=== PATIENT | female | born 1980 | race African-American/Black ===

== ENCOUNTER 2017-03-22 11:48 | Emergency (ER) | payer OTHER ==
[~2017-03-22] VITALS: Ht 162.6 cm; Wt 70.8 kg
[~2017-03-22 11:48] MED LIST: ACETAMINOPHEN325 M1 PO; AMOXICILLIN 50500 M1 PO; CENTRUM SILVER1 EAC2 PO; CIPROFLOXACIN500 M1 PO; FLEXERIL PO; HYDROCODON-ACE1 EAC7 PO; IBUPROFEN 600600 M1 PO; MACROBID 100 M100 M1 PO; NAPROSYN500 MG PO; NOHOMEMEDICATIONS; OSELB75 PO; PYRIDIUM200 MG PO; TESSALON PERLE100 MG PO; ZOFRAN ODT4 MG PO; ZPAK PO
[2017-03-22 12:53] LABS: HEMATOCRIT 38.4 % (37.0-47.0); HEMOGLOBIN 13.5 gm/dL (12.0-15.0); MCH 29.8 pg (26.0-34.0); MCHC 35.1 g/dL (28.0-37.0); MCV 84.9 fL (80.0-100.0); PLATELET COUNT 174 thou/uL (150-400); RBC 4.52 mil/uL (4.20-5.00); RDW 12.4 % (10.5-14.5); WBC 3.6 thou/uL (4.0-11.0)
[2017-03-22 12:54] LABS: URINE BILIRUBIN NEGATIVE (Negative); URINE BLOOD TRACE (Negative); URINE COLOR YELLOW; URINE GLUCOSE-RANDOM* NEGATIVE (Negative); URINE KETONES NEGATIVE (Negative); URINE NITRITE NEGATIVE (Negative); URINE PROTEIN (DIPSTICK) NEGATIVE (Negative); URINE SPECIFIC GRAVITY <= 1.005 (1.003-1.035); URINE UROBILINOGEN 0.2 E.U./dl (0.2-1.0)
[2017-03-22 12:54] LABS: MANUAL DIFF YES
[2017-03-22 13:07] LABS: CALCIUM 8.6 mg/dL (8.5-10.1); CREATININE 0.7 mg/dL (0.6-1.0); POTASSIUM 3.7 mmol/L (3.5-5.1)
[2017-03-22 13:12] LABS: ALBUMIN 3.5 g/dL (3.4-5.0); TOTAL BILIRUBIN 1.1 mg/dL (<0.1-1.0); TOTAL PROTEIN 7.4 g/dL (6.4-8.2)
[2017-03-22 13:34] LABS: ABSOLUTE NEUTROPHILS 2.8 thou/uL (1.4-8.2); PLATELET ESTIMATE NORMAL; TOTAL CELL COUNT 100
[2017-03-22] MEDS ORDERED: ZOFRAN ODT4 MG PO (14:45)
[2017-03-22] MEDS ORDERED: IBUPROFEN 800800 MG PO (15:06)
== END 2017-03-22 15:11 | disposition home or self-care (01) ==
LOC: ER 11:48
PROVIDERS: Nurse Practitioner Family
DX: R10.31 Right lower quadrant pain (principal); M54.5 Low back pain; F10.99 Alcohol use, unspecified with unspecified alcohol-induced disorder

== ENCOUNTER 2019-01-24 13:57 | Emergency (ER) | payer OTHER ==
[~2019-01-24] VITALS: Ht 162.6 cm; Wt 68.0 kg
[~2019-01-24 13:57] MED LIST changes: +IBUPROFEN 800800 MG PO
[2019-01-24] MEDS ORDERED: ADIPEX-P37.5 MG PO (14:30)
[2019-01-24] MEDS ORDERED: FLONASE 0.05%50 MCG NASAL (17:17)
[2019-01-24] MEDS ORDERED: OSELB75 PO (17:18)
[2019-01-24 17:28] VITALS: BP 109/79
== END 2019-01-24 17:29 | disposition home or self-care (01) ==
LOC: ER 13:57
DX: J30.89 Other allergic rhinitis (principal); J02.9 Acute pharyngitis, unspecified; R05 Cough; R50.9 Fever, unspecified; M79.10 Myalgia, unspecified site